=== PATIENT | female | born 1955 | race Caucasian/White ===

== ENCOUNTER → 2024-05-22 07:51 | Outpatient (REF) | payer MEDICARE, OTHER, SELFPAY | LOC: WDC 07:51 | PROVIDERS: ATTENDING PHYSICIAN Obstetrics & Gynecology Gynecology; FAMILY PHYSICIAN Internal Medicine | DX: Z12.31 Encounter for screening mammogram for malignant neoplasm of breast (principal) | CPT/HCPCS: 77063; 77067 ==

== ENCOUNTER → 2025-05-23 08:08 | Outpatient (REF) | payer MEDICARE, OTHER, SELFPAY | LOC: WDC 08:08 | PROVIDERS: ATTENDING PHYSICIAN Obstetrics & Gynecology Gynecology | DX: Z12.31 Encounter for screening mammogram for malignant neoplasm of breast (principal) | CPT/HCPCS: 77063; 77067 ==